=== PATIENT | female | born 1965 | race Caucasian/White ===

== ENCOUNTER → 2024-09-04 08:14 | Outpatient (REF) | payer OTHER, SELFPAY | LOC: HWRAD 08:14 | PROVIDERS: ATTENDING PHYSICIAN Physician Assistant; FAMILY PHYSICIAN Physician Assistant Medical | DX: R10.13 Epigastric pain (principal); R07.81 Pleurodynia; R91.8 Other nonspecific abnormal finding of lung field | CPT/HCPCS: 71250; 76700 ==